=== PATIENT | female | born 1980 | race Caucasian/White ===

== ENCOUNTER → 2016-04-15 | Outpatient (CLI) | payer MEDICARE, MEDICAID | LOC: RAD 13:51 | PROVIDERS: ATTEND Neurological Surgery | DX: G37.9 Demyelinating disease of central nervous system, unspecified (principal) | CPT/HCPCS: 70553; A9577 ==

== ENCOUNTER → 2016-07-15 | Outpatient (CLI) | payer MEDICARE, MEDICAID | LOC: OD 10:25 | PROVIDERS: ATTEND Family Medicine | DX: R91.1 Solitary pulmonary nodule (principal) | CPT/HCPCS: 71020 ==

== ENCOUNTER 2016-09-15 19:16 | Emergency (ER) | payer MEDICARE, MEDICAID ==
--- NOTE | 2016-09-15 20:29 | ER Document Report ---
HPI - HPI Pain Level: 4 Context: Patient is a 36-year-old female that comes emergency department with chief complaint of pain in her left leg, patient states pain is been intermittent for a couple of days and is consistent with her left femoral head bursitis. She states that the pain starts towards the left outer part of her leg at the top and runs down towards her knee She denies injury, she denies fever or chills. - CARDIOVASCULAR Cardiovascular: DENIES: Chest pain - REPRODUCTIVE Reproductive: DENIES: : - DERM Skin Color: Normal Past Medical History - Social History Smoking Status: Current Every Day Smoker Chew tobacco use (# tins/day): No Frequency of alcohol use: Rare Drug Abuse: None Family History: Arthritis, CAD, CVA, DM, Hyperlipidemia, Hypertension, Malignancy, Thyroid Disfunction Patient has suicidal ideation: No Patient has homicidal ideation: No - Past Medical History Cardiac Medical History: Denies: Hx Coronary Artery Disease, Hx Heart Attack, Hx Hypertension Pulmonary Medical History: Reports: Hx Asthma, Hx Pneumonia - childhood Denies: Hx Bronchitis, Hx COPD Neurological Medical History: Reports: Hx Migraine. Denies: Hx Cerebrovascular Accident, Hx Seizures Endocrine Medical History: Denies: Hx Diabetes Mellitus Type 1, Hx Diabetes Mellitus Type 2 Renal/ Medical History: Denies: Hx Peritoneal Dialysis GI Medical History: Reports: Hx Gastroesophageal Reflux Disease, Hx Irritable Bowel Musculoskeltal Medical History: Denies Hx Arthritis, Reports Hx Fibromyalgia, Reports Hx Musculoskeletal Trauma Skin Medical History: Reports Hx MRSA Psychiatric Medical History: Reports: Hx Anxiety, Hx Bipolar Disorder, Hx Depression - anxiety, Hx Schizophrenia Traumatic Medical History: Reports: Hx Fractures Infectious Medical History: Reports: Hx MRSA Past Surgical History: Reports: Hx Adenoidectomy, Hx Myringotomy, Hx Orthopedic Surgery - Right knee surgery, Hx Tonsillectomy, Hx Tubal Ligation. Denies: Hx Hysterectomy, Hx Pacemaker - Immunizations Immunizations up to date: Yes Hx Diphtheria, Pertussis, Tetanus Vaccination: Yes - 2011 Hx Pneumococcal Vaccination: 02/27/09 Vertical Provider Document - CONSTITUTIONAL Agree With Documented VS: Yes Exam Limitations: No Limitations General Appearance: WD/WN, No Apparent Distress - INFECTION CONTROL TRAVEL OUTSIDE OF THE [place] IN LAST 30 DAYS: No - RESPIRATORY O2 Sat by Pulse Oximetry: 100 - CARDIOVASCULAR Pulses: Normal: Femoral, Dorsalis pedis - MUSCULOSKELETAL/EXTREMETIES Musculoskeletal/Extremeties: MAEW, FROM, Non-Tender, No Edema. negative: Eccymosis Notes: no deformity, normal gait, stuart to ambulate without difficulty - NEURO Level of Consciousness: Awake, Alert, Appropriate Motor/Sensory: No Motor Deficit, No Sensory Deficit - DERM Integumentary: Warm, Dry, No Rash. negative: Abscess Course - Re-evaluation Re-evalutation: 09/15/16 21:30 Patient is a 36-year-old female who is hemodynamic stable, no acute distress and afebrile. Patient presents with acute on chronic trochanteric bursitis of the left hip. Patient will be discharged home on steroids and to follow-up with her primary care. Low clinical suspicion for any underlying fracture given no acute trauma and presentation is consistent with previous evaluations for trochanteric bursitis. Patient to be discharged home, agreeable with plan. - Vital Signs Vital signs: Temp Pulse Resp BP Pulse Ox 98.1 F 79 14 125/79 100 09/15/16 19:23 09/15/16 19:23 09/15/16 19:23 09/15/16 19:23 09/15/16 19:23 Discharge - Discharge Clinical Impression: Trochanteric bursitis Qualifiers: Laterality: left Qualified Code(s): M70.62 - Trochanteric bursitis, left hip Condition: Good Disposition: HOME, SELF-CARE Instructions: Bursitis ([facility]) Additional Instructions: Please take your medications as prescribed and follow-up with your orthopedist, pain management and primary care physicians within 1 week. Prescriptions: Methylprednisolone [Medrol Dosepack (4 mg/Tab) 21 Tab/Dosepak] 4 mg PO ASDIR PRN #21 [id number] PRN Reason: Referrals: DAVIN RIVERA DO [Primary Care Provider] - Follow up as needed
[2016-09-15 20:53] VITALS: BP 125/95
== END 2016-09-15 20:53 | disposition home or self-care (01) ==
LOC: ER 19:16
DX: M70.62 Trochanteric bursitis, left hip (principal); F17.200 Nicotine dependence, unspecified, uncomplicated; Z86.14 Personal history of Methicillin resistant Staphylococcus aureus infection
CPT/HCPCS: 99283

== ENCOUNTER 2017-03-08 18:45 | Emergency (ER) | payer MEDICARE, MEDICAID ==
[2017-03-08 19:00] VITALS: BP 127/76
[2017-03-08] MEDS ORDERED: KETOROLAC TROMETHAMINE 60 MG/2 ML SDV IM ONE (20:51)
--- NOTE | 2017-03-08 20:56 | ER Document Report ---
ED Hip Pain/Injury - General Chief Complaint: Hip Pain Stated Complaint: RIGHT HIP PAIN Time Seen by Provider: 03/08/17 20:49 Notes: pt c/o right hip pain x 2 days. pt reports that she twisted on the couch and felt pain in right hip now hurts to move. pt presently taking percocet prn, muscle relaxant and celebrex for some undiagnosed autoimmune disease TRAVEL OUTSIDE OF THE [place] IN LAST 30 DAYS: No - HPI Patient complains to provider of: Pain Where: Home Onset/Duration: Gradual, Persistent Quality of pain: Sharp Rotation of extremity: None - Related Data Allergies/Adverse Reactions: naproxen [Naproxen] Allergy (Verified 03/08/17 18:54) GI upset quetiapine fumarate [From Seroquel] Allergy (Verified 03/08/17 18:54) throat swelling Past Medical History - General Information source: Patient - Social History Smoking Status: Current Every Day Smoker Chew tobacco use (# tins/day): No Frequency of alcohol use: Occasional Drug Abuse: None Lives with: Family Family History: Arthritis, CAD, CVA, DM, Hyperlipidemia, Hypertension, Malignancy, Thyroid Disfunction Patient has suicidal ideation: No Patient has homicidal ideation: No - Past Medical History Cardiac Medical History: Denies: Hx Coronary Artery Disease, Hx Heart Attack, Hx Hypertension Pulmonary Medical History: Reports: Hx Asthma, Hx Pneumonia - childhood Denies: Hx Bronchitis, Hx COPD Neurological Medical History: Reports: Hx Migraine. Denies: Hx Cerebrovascular Accident, Hx Seizures Endocrine Medical History: Denies: Hx Diabetes Mellitus Type 1, Hx Diabetes Mellitus Type 2 Renal/ Medical History: Denies: Hx Peritoneal Dialysis GI Medical History: Reports: Hx Gastroesophageal Reflux Disease, Hx Irritable Bowel Musculoskeltal Medical History: Denies Hx Arthritis, Reports Hx Fibromyalgia, Reports Hx Musculoskeletal Trauma Skin Medical History: Reports Hx MRSA Psychiatric Medical History: Reports: Hx Anxiety, Hx Bipolar Disorder, Hx Depression - anxiety, Hx Schizophrenia Traumatic Medical History: Reports: Hx Fractures Infectious Medical History: Reports: Hx MRSA Past Surgical History: Reports: Hx Adenoidectomy, Hx Myringotomy, Hx Orthopedic Surgery - Right knee surgery, Hx Tonsillectomy, Hx Tubal Ligation. Denies: Hx Hysterectomy, Hx Pacemaker - Immunizations Immunizations up to date: Yes Hx Diphtheria, Pertussis, Tetanus Vaccination: Yes - 2011 Hx Pneumococcal Vaccination: 02/27/09 Review of Systems - Review of Systems Constitutional: No symptoms reported EENT: No symptoms reported Cardiovascular: No symptoms reported Respiratory: No symptoms reported Gastrointestinal: No symptoms reported Genitourinary: No symptoms reported Female Genitourinary: No symptoms reported Musculoskeletal: No symptoms reported Skin: No symptoms reported Hematologic/Lymphatic: No symptoms reported Neurological/Psychological: No symptoms reported -: Yes All other systems reviewed and negative Physical Exam - Vital signs Vitals: Temp Pulse Resp BP Pulse Ox 98.6 F 66 16 127/76 H 99 03/08/17 18:57 03/08/17 18:57 03/08/17 18:57 03/08/17 18:57 03/08/17 18:57 Interpretation: Normal - General General appearance: Appears well, Alert - HEENT Head: Normocephalic, Atraumatic Eyes: Normal Pupils: PERRL - Respiratory Respiratory status: No respiratory distress Chest status: Nontender Breath sounds: Normal Chest palpation: Normal - Cardiovascular Rhythm: Regular Heart sounds: Normal auscultation Murmur: No - Abdominal Inspection: Normal Distension: No distension Bowel sounds: Normal Tenderness: Nontender Organomegaly: No organomegaly - Back Back: Normal, Nontender - Extremities General upper extremity: Normal inspection, Nontender, Normal color, Normal ROM , Normal temperature Hip: Tender - focal right anterior groin pain over sartorious muscle. no greater trochanter or iliac tenderness. distal SMC intact - Neurological Neuro grossly intact: Yes Cognition: Normal Orientation: AAOx4 [place] Coma Scale Eye Opening: Spontaneous [place] Coma Scale Verbal: Oriented [place] Coma Scale Motor: Obeys Commands [place] Coma Scale Total: 15 Speech: Normal Motor strength normal: LUE, RUE, LLE, RLE Sensory: Normal - Psychological Associated symptoms: Normal affect, Normal mood - Skin Skin Temperature: Warm Skin Moisture: Dry Skin Color: Normal Course - Vital Signs Vital signs: Temp Pulse Resp BP Pulse Ox 98.6 F 66 16 127/76 H 99 03/08/17 18:57 03/08/17 18:57 03/08/17 18:57 03/08/17 18:57 03/08/17 18:57 Discharge - Discharge Clinical Impression: Right groin pain Condition: Stable Disposition: HOME, SELF-CARE Instructions: Toradol Injection ([facility]) Additional Instructions: alternate ice/heat to area continue current medications follow up with primary care if pain persists
== END 2017-03-08 21:39 | disposition home or self-care (01) ==
LOC: ER 18:45
DX: R10.30 Lower abdominal pain, unspecified (principal); M25.551 Pain in right hip; J45.909 Unspecified asthma, uncomplicated; F17.200 Nicotine dependence, unspecified, uncomplicated; Z79.899 Other long term (current) drug therapy; Z88.8 Allergy status to other drugs, medicaments and biological substances
CPT/HCPCS: 99283; 96372; J1885

== ENCOUNTER 2017-04-09 16:51 | Emergency (ER) | payer MEDICARE, MEDICAID ==
--- NOTE | 2017-04-09 17:32 | ER Document Report ---
ED Medical Screen (RME) - General Chief Complaint: Abdominal Pain Stated Complaint: ABDOMINAL PAIN, NAUSEA Time Seen by Provider: 04/09/17 17:29 Mode of Arrival: Ambulatory Information source: Patient TRAVEL OUTSIDE OF THE [place] IN LAST 30 DAYS: No - HPI Patient complains to provider of: RLQ abd pain Onset: This afternoon - pt with onset of RLQ abdominal pain earlier this afternoon. Denies N/V - Related Data Allergies/Adverse Reactions: naproxen [Naproxen] Allergy (Verified 04/09/17 16:51) GI upset quetiapine fumarate [From Seroquel] Allergy (Verified 04/09/17 16:51) throat swelling Past Medical History - Social History Chew tobacco use (# tins/day): No Frequency of alcohol use: Rare Drug Abuse: None Family history: Arthritis, CAD, CVA, DM, Hyperlipidemia, Hypertension, Malignancy, Thyroid Disfunction - Past Medical History Cardiac Medical History: Denies: Hx Coronary Artery Disease, Hx Heart Attack, Hx Hypertension Pulmonary Medical History: Reports: Hx Asthma, Hx Pneumonia - childhood Denies: Hx Bronchitis, Hx COPD Neurological Medical History: Reports: Hx Migraine. Denies: Hx Cerebrovascular Accident, Hx Seizures Endocrine Medical History: Denies: Hx Diabetes Mellitus Type 1, Hx Diabetes Mellitus Type 2 Renal/ Medical History: Denies: Hx Peritoneal Dialysis GI Medical History: Reports: Hx Gastroesophageal Reflux Disease, Hx Irritable Bowel Musculoskeltal Medical History: Denies Hx Arthritis, Reports Hx Fibromyalgia, Reports Hx Musculoskeletal Trauma Skin Medical History: Reports Hx MRSA Psychiatric Medical History: Reports: Hx Anxiety, Hx Bipolar Disorder, Hx Depression - anxiety, Hx Schizophrenia Traumatic Medical History: Reports: Hx Fractures Infectious Medical History: Reports: Hx MRSA Past Surgical History: Reports: Hx Adenoidectomy, Hx Myringotomy, Hx Orthopedic Surgery - Right knee surgery, Hx Tonsillectomy, Hx Tubal Ligation. Denies: Hx Hysterectomy, Hx Pacemaker - Immunizations Immunizations up to date: Yes Hx Diphtheria, Pertussis, Tetanus Vaccination: Yes - 2011 Physical Exam - Vital signs Vitals: Temp Pulse Resp BP Pulse Ox 99.4 F 98 16 122/78 97 04/09/17 16:56 04/09/17 16:56 04/09/17 16:56 04/09/17 16:56 04/09/17 16:56 Course - Vital Signs Vital signs: Temp Pulse Resp BP Pulse Ox 99.4 F 98 16 122/78 97 04/09/17 16:56 04/09/17 16:56 04/09/17 16:56 04/09/17 16:56 04/09/17 16:56
[2017-04-09 18:35] LABS: ABSOLUTE BASOPHILS # (AUTO) 0.1 10^3/uL (0.0-0.2); ABSOLUTE EOSINOPHILS # (AUTO) 0.3 10^3/uL (0.0-0.6); ABSOLUTE LYMPHOCYTES (AUTO) 3.3 10^3/uL (0.5-4.7); ABSOLUTE MONOCYTES (AUTO) 0.5 10^3/uL (0.1-1.4); ABSOLUTE NEUT (AUTO) 3.9 10^3/uL (1.7-8.2); BASOPHILS % (AUTO) 0.9 % (0-2); EOSINOPHILS % (AUTO) 3.8 % (0-6); HEMATOCRIT 43.3 % (36.0-47.0); HEMOGLOBIN 15.4 g/dL (12.0-15.5); LYMPHOCYTES % (AUTO) 40.9 % (13-45); MEAN CORPUSCULAR HEMOGLOBIN 32.2 pg (27.0-33.4); MEAN CORPUSCULAR HGB CONC 35.5 g/dL (32.0-36.0); MEAN CORPUSCULAR VOLUME 91 fl (80-97); MONOCYTES % (AUTO) 6.7 % (3-13); PLATELET COUNT 237 10^3/uL (150-450); RED BLOOD COUNT 4.77 10^6/uL (3.72-5.28); RED CELL DISTRIBUTION WIDTH 12.3 % (11.5-14.0); SEGMENTED NEUTROPHILS % (AUTO) 47.7 % (42-78); TOTAL CELLS COUNTED % (AUTO) 100 %; WHITE BLOOD COUNT 8.1 10^3/uL (4.0-10.5)
[2017-04-09 18:40] LABS: APPEARANCE,URINE SLIGHTLY-CLOUDY; BILIRUBIN,URINE NEGATIVE (NEGATIVE); COLOR,URINE AMBER; GLUCOSE, URINE NEGATIVE (NEGATIVE); KETONES,URINE NEGATIVE (NEGATIVE); LEUKOCYTE ESTERASE,URINE NEGATIVE (NEGATIVE); NITRITE,URINE NEGATIVE (NEGATIVE); PROTEIN,URINE NEGATIVE (NEGATIVE)
[2017-04-09 18:58] LABS: ALANINE AMINOTRANSFERASE 28 U/L (9-52); ALBUMIN 4.4 g/dL (3.5-5.0); ALKALINE PHOSPHATASE 52 U/L (38-126); ANION GAP 7 (5-19); ASPARTATE AMINO TRANSFERASE 23 U/L (14-36); BILIRUBIN,DIRECT 0.3 mg/dL (0.0-0.4); BILIRUBIN,TOTAL 0.3 mg/dL (0.2-1.3); BLOOD UREA NITROGEN 12 mg/dL (7-20); CALCIUM 10.5 mg/dL (8.4-10.2); CARBON DIOXIDE 22 mmol/L (22-30); CHLORIDE 112 mmol/L (98-107); GLUCOSE 85 mg/dL (75-110); POTASSIUM 4.1 mmol/L (3.6-5.0); SODIUM 141.1 mmol/L (137-145); TOTAL PROTEIN 7.4 g/dL (6.3-8.2)
[2017-04-09] MEDS ORDERED: ONDANSETRON HCL INJ/PF 4 MG/2 ML SDV IV ONE (20:13)
--- NOTE | 2017-04-09 20:16 | ER Document Report ---
ED General - General Mode of Arrival: Ambulatory Information source: Patient TRAVEL OUTSIDE OF THE [place] IN LAST 30 DAYS: No <AUGUST MERCEDES - Last Filed: 04/09/17 21:05> <SHIRA MONCAAD - Last Filed: 04/09/17 22:24> - General Chief Complaint: Abdominal Pain Stated Complaint: ABDOMINAL PAIN, NAUSEA Time Seen by Provider: 04/09/17 17:29 Notes: Mrs. Dunham is a 36 y.o female who presents to the ED with RLQ abd pain and a general feeling of fatigue. Patient reports the onset of her abd pain today with the onset of nausea. She described her pain as a sharp intermittent pain that is exacerbated with touch. Patient also reports a "rust" colored rash to the palm of her hand that has since been relieved. She also admits to vaginal discharge but denies any known possiblies of STD. Patient reports a PSHx of tubal ligation. (AUGUST MERCEDES) - Related Data Allergies/Adverse Reactions: naproxen [Naproxen] Allergy (Verified 04/09/17 16:51) GI upset quetiapine fumarate [From Seroquel] Allergy (Verified 04/09/17 16:51) throat swelling Past Medical History - General Information source: Patient - Social History Smoking Status: Current Every Day Smoker - 1 pack/day Chew tobacco use (# tins/day): No Frequency of alcohol use: Rare Drug Abuse: None Family History: Arthritis, CAD, CVA, DM, Hyperlipidemia, Hypertension, Malignancy, Thyroid Disfunction Patient has suicidal ideation: No Patient has homicidal ideation: No Pulmonary Medical History: Reports: Hx Asthma, Hx Pneumonia - childhood Neurological Medical History: Reports: Hx Migraine Renal/ Medical History: Denies: Hx Peritoneal Dialysis GI Medical History: Reports: Hx Gastroesophageal Reflux Disease, Hx Irritable Bowel Musculoskeltal Medical History: Reports Hx Fibromyalgia, Reports Hx Musculoskeletal Trauma Skin Medical History: Reports Hx MRSA Psychiatric Medical History: Reports: Hx Anxiety, Hx Bipolar Disorder, Hx Depression - anxiety, Hx Schizophrenia Traumatic Medical History: Reports: Hx Fractures Infectious Medical History: Reports: Hx MRSA Past Surgical History: Reports: Hx Adenoidectomy, Hx Myringotomy, Hx Orthopedic Surgery - Right knee surgery, Hx Tonsillectomy, Hx Tubal Ligation. Denies: Hx Hysterectomy, Hx Pacemaker - Immunizations Immunizations up to date: Yes Hx Diphtheria, Pertussis, Tetanus Vaccination: Yes - 2011 Hx Pneumococcal Vaccination: 02/27/09 <AUGUST MERCEDES - Last Filed: 04/09/17 21:05> - Social History Smoking Education Provided: Yes - 4 mins <JAYLENMECHELLESHIRA - Last Filed: 04/09/17 22:24> Review of Systems - Review of Systems Constitutional: Other - "drained" EENT: No symptoms reported Cardiovascular: No symptoms reported Respiratory: No symptoms reported Gastrointestinal: Abdominal pain - RLQ pain Genitourinary: Discharge Female Genitourinary: No symptoms reported Musculoskeletal: No symptoms reported Skin: Rash - "rust colored" to the palm of hand Hematologic/Lymphatic: No symptoms reported Neurological/Psychological: No symptoms reported <AUGUST MERCEDES - Last Filed: 04/09/17 21:05> - Review of Systems Gastrointestinal: See HPI, Nausea <SHIRA MONCADA - Last Filed: 04/09/17 22:24> Physical Exam <AUGUST MERCEDES - Last Filed: 04/09/17 21:05> <SHIRA MONCADA - Last Filed: 04/09/17 22:24> - Vital signs Vitals: Temp Pulse Resp BP Pulse Ox 99.4 F 98 16 122/78 97 04/09/17 16:56 04/09/17 16:56 04/09/17 16:56 04/09/17 16:56 04/09/17 16:56 - Notes Notes: GENERAL: Alert, interacts well. No acute distress. HEAD: Normocephalic, atraumatic. EYES: Pupils equal, round, and reactive to light. Extraocular movements intact. ENT: Oral mucosa moist, tongue midline. NECK: Full range of motion. Supple. Trachea midline. LUNGS: Clear to auscultation bilaterally, no wheezes, rales, or rhonchi. No respiratory distress. HEART: Regular rate and rhythm. No murmurs, gallops, or rubs. ABDOMEN: Abdomen soft. Non-distended. Bowel sounds present in all 4 quadrants. RLQ tender to palpation, winces to physical exam. No guarding, rebound, or rigidity. EXTREMITIES: Moves all 4 extremities spontaneously. No edema, radial and dorsalis pedis pulses 2/4 bilaterally. No cyanosis. NEUROLOGICAL: Alert and oriented x3. Normal speech. PSYCH: Normal affect, normal mood. SKIN: Warm, dry, normal turgor. No rashes or lesions noted. (AUGUST MERCEDES) Course - Laboratory Result Diagrams: 04/09/17 18:14 04/09/17 18:14 <AUGUST MERCEDES - Last Filed: 04/09/17 21:05> - Laboratory Result Diagrams: 04/09/17 18:14 04/09/17 18:14 <SHIRA MONCADA - Last Filed: 04/09/17 22:24> - Re-evaluation Re-evalutation: 04/09/17 21:11 CBC unremarkable, CMP grossly unremarkable, test negative, urinalysis unremarkable, CT scan of the abdomen pelvis reveals small amount of free fluid, normal appendix, pedunculated fibroid. Suspect that she likely had a ruptured ovarian cyst causing her pain, patient agrees, states she has had one of these in the past and feels very similar but was on the left-hand side so when she developed the pain on the right-hand side she worried about her appendix rather than a ruptured cyst. Patient already has narcotic pain medication at home, will be given Zofran to take home and discharged home. She will return for worsening pain, persistent pain or fevers. 04/09/17 21:11 (SHRIA MONCADA) - Vital Signs Vital signs: Temp Pulse Resp BP Pulse Ox 99.4 F 89 18 119/68 98 04/09/17 16:56 04/09/17 21:24 04/09/17 21:24 04/09/17 21:24 04/09/17 21:24 - Laboratory Laboratory results interpreted by me: 04/09/17 04/09/17 18:14 18:14 Chloride 112 H Calcium 10.5 H Urine Urobilinogen 2.0 H Urine Ascorbic Acid 40 H Discharge <AUGUST MERCEDES - Last Filed: 04/09/17 21:05> <SHIRA MONCADA - Last Filed: 04/09/17 22:24> - Discharge Clinical Impression: Tobacco abuse, Tobacco abuse counseling, RLQ abdominal pain Uterine fibroid Qualifiers: Uterine leiomyoma location: unspecified location Qualified Code(s): D25.9 - Leiomyoma of uterus, unspecified Condition: Stable Disposition: HOME, SELF-CARE Additional Instructions: I suspect her pain is coming from a ruptured ovarian cyst. Today your appendix is normal. You have a fibroid in your uterus. If your pain worsens, if you develop a fever or if you develop any concerning symptoms please return to the emergency department. Please mention your uterine fibroid to your MEDICAL STAFF ASSISTANT the next time you see them. Forms: Smoking Cessation Education Referrals: DAVIN RIVERA DO [Primary Care Provider] - Follow up as needed Scribe Attestation: 04/09/17 22:24 I personally performed the services described in the documentation, reviewed and edited the documentation which was dictated to the scribe in my presence, and it accurately records my words and actions. (SHIRA MONCADA)
--- NOTE | 2017-04-09 20:18 | RADIOLOGY REPORT (SQ) ---
EXAM DESCRIPTION: CT ABD/PELVIS WITH IV ONLY COMPLETED DATE/TIME: 04/09/2017 8:08 pm REASON FOR STUDY: abd pain: RLQ COMPARISON: None. TECHNIQUE: CT scan of the abdomen and pelvis performed using helical scanning technique with dynamic intravenous contrast injection. No oral contrast. Images reviewed with lung, soft tissue, and bone windows. Reconstructed coronal and sagittal MPR images reviewed. Delayed images for evaluation of the urinary system also acquired. All images stored on PACS. All CT scanners at this facility use dose modulation, iterative reconstruction, and/or weight based d osing when appropriate to reduce radiation dose to as low as reasonably achievable (ALARA). [facility]: Dose Right [facility]: CareDose [facility]: Dose Right [facility]: Teradose 4D [facility]: [employer]cycles CONTRAST TYPE AND DOSE: contrast/concentration: Isovue 370.00 mg/ml; Total Contrast Delivered: 83.0 ml; Total Saline Delivered: 68.0 ml RENAL FUNCTION: None required. The patient is less than 50 years old. RADIATION DOSE: . LIMITATIONS: None. FINDINGS: LOWER CHEST: No significant findings. No nodules or infiltrates. LIVER: Small hepatic cysts. No significant masses. No dilated ducts. SPLEEN: Normal size. No focal lesions. PANCREAS: No masses. No significant calcifications. No adjacent inflammation or peripancreatic fluid collections. Pancreatic duct not dilated. GALLBLADDER: No identified stones by CT criteria. No inflammatory changes to suggest cholecystitis. ADRENAL GLANDS: No significant masses or asymmetry. RIGHT KIDNEY AND URETER: No solid masses. No significant calcifications. No hydronephrosis or hyd roureter. LEFT KIDNEY AND URETER: No solid masses. No significant calcifications. No hydronephrosis or hydr oureter. AORTA AND VESSELS: No aneurysm. No dissection. Renal arteries, SMA, celiac without stenosis. RETROPERITONEUM: No retroperitoneal adenopathy, hemorrhage or masses. BOWEL AND PERITONEAL CAVITY: No masses or inflammatory changes. No free fluid or peritoneal masses. APPENDIX: Normal. PELVIS: 3.4 cm left-sided pedunculated uterine fibroid. Small amount of free fluid in the pelvis. N ormal bladder. . ABDOMINAL WALL: No hernia BONES: No significant or acute findings. OTHER: No other significant finding. IMPRESSION: 3.4 cm left sided pedunculated uterine fibroid. Small amount of free fluid in the pelvis. Appendix normal. TECHNICAL DOCUMENTATION: JOB ID: [id number] Quality ID # [id number]: Final reports with documentation of one or more dose reduction techniques (e.g., Au tomated exposure control, adjustment of the mA and/or kV according to patient size, use of iterative reconstruction technique) 2010 [employer]- All Rights Reserved
[2017-04-09] MEDS ORDERED: ONDANSETRON ODT 4 MG TAB (6 TAB/ER DISP) PO PRN (21:08)
[2017-04-09 21:25] VITALS: BP 119/68
== END 2017-04-09 21:24 | disposition home or self-care (01) ==
LOC: ER 16:51
DX: D25.9 Leiomyoma of uterus, unspecified (principal); R10.31 Right lower quadrant pain; N89.8 Other specified noninflammatory disorders of vagina; R53.83 Other fatigue; R11.0 Nausea; J45.909 Unspecified asthma, uncomplicated; F17.200 Nicotine dependence, unspecified, uncomplicated; Z71.6 Tobacco abuse counseling; Z98.51 Tubal ligation status; Z88.8 Allergy status to other drugs, medicaments and biological substances
CPT/HCPCS: 99284; 96374; 36415; 83690; 85025; 81025; 80053; 81001; 74177; J2405; A9270

== ENCOUNTER 2017-10-23 09:26 | Emergency (ER) | payer MEDICARE, MEDICAID ==
--- NOTE | 2017-10-23 09:40 | ER Document Report ---
HPI - HPI Patient complains to provider of: Right hip pain Onset: Other - 2 weeks Pain Level: 4 Context: 37-year-old female complaining of right hip pain for 2 weeks. No specific injury. She has been seen for hip pain in the past. No back pain. Hurts worse with movement. There is no radiculopathy or saddle anesthesia. No fever or chills. No IV drug use. Associated Symptoms: None Exacerbated by: Movement, Walking Relieved by: Denies - ROS ROS below otherwise negative: Yes Systems Reviewed and Negative: Yes All other systems reviewed and negative - REPRODUCTIVE Reproductive: DENIES: : Past Medical History - General Information source: Patient - Social History Smoking Status: Unknown if Ever Smoked Family History: Arthritis, CAD, CVA, DM, Hyperlipidemia, Hypertension, Malignancy, Thyroid Disfunction Pulmonary Medical History: Reports: Hx Asthma, Hx Pneumonia - childhood Neurological Medical History: Reports: Hx Migraine GI Medical History: Reports: Hx Gastroesophageal Reflux Disease, Hx Irritable Bowel Musculoskeletal Medical History: Reports Hx Fibromyalgia, Reports Hx Musculoskeletal Trauma Skin Medical History: Reports Hx MRSA Psychiatric Medical History: Reports: Hx Anxiety, Hx Bipolar Disorder, Hx Depression - anxiety, Hx Schizophrenia Traumatic Medical History: Reports: Hx Fractures Infectious Medical History: Reports: Hx MRSA Past Surgical History: Reports: Hx Adenoidectomy, Hx Myringotomy, Hx Orthopedic Surgery - Right knee surgery, Hx Tonsillectomy, Hx Tubal Ligation - Immunizations Immunizations up to date: Yes Hx Diphtheria, Pertussis, Tetanus Vaccination: Yes - 2011 Hx Pneumococcal Vaccination: 02/27/09 Vertical Provider Document - CONSTITUTIONAL Agree With Documented VS: Yes Exam Limitations: No Limitations General Appearance: Obese - INFECTION CONTROL TRAVEL OUTSIDE OF THE [place] IN LAST 30 DAYS: No - GI/ABDOMEN Gastrointestinal: Abdomen Soft, Abdomen Non-Tender, No Organomegaly - BACK Back: Normal Inspection - MUSCULOSKELETAL/EXTREMETIES Musculoskeletal/Extremeties: MAEW, FROM, Tender - mild over the soft tissue above the greater trochantur. negative: Edema, Eccymosis - NEURO Level of Consciousness: Awake, Alert - DERM Integumentary: No Rash Course - Re-evaluation Re-evalutation: 10/23/17 11:20 Hip x-rays negative per radiologist The patient has a connective tissue disorder which is probably including this pain. She is a pain management and I will reassure her that the x-ray is normal and she can follow-up with her pain management. Discharge - Discharge Clinical Impression: Right hip pain Condition: Good Disposition: HOME, SELF-CARE Instructions: Muscle Strain ([facility]) Additional Instructions: See your doctor for follow-up Tylenol up to 4000 mg a day for pain Continue the Celebrex for inflammation Copy of negative imaging report given to you Return to the emergency room for any worsening of the symptoms or any concerns Referrals: DAVIN RIVERA DO [Primary Care Provider] - Follow up tomorrow
--- NOTE | 2017-10-23 11:15 | RADIOLOGY REPORT (SQ) ---
EXAM DESCRIPTION: HIP RIGHT AP/LATERAL COMPLETED DATE/TIME: 10/23/2017 10:52 am REASON FOR STUDY: pain COMPARISON: None. NUMBER OF VIEWS: Two views. TECHNIQUE: AP pelvis and additional frog-leg view of the right hip. LIMITATIONS: None. FINDINGS: MINERALIZATION: Normal. RIGHT HIP: No fracture or dislocation. No worrisome bone lesions. No contour deformity. No joint sp cj narrowing. LEFT HIP: No fracture or dislocation. No worrisome bone lesions. PUBIS AND ISCHIUM: No fracture. PELVIS: No fracture. SACRUM: No fracture or dislocation. No worrisome bone lesions. LOWER LUMBAR SPINE: No fracture or dislocation. No worrisome bone lesions. No significant disc disea se. SOFT TISSUES: No findings. OTHER: No other significant finding. IMPRESSION: No acute findings. TECHNICAL DOCUMENTATION: JOB ID: [id number] [employer]- All Rights Reserved Reading location - IP/workstation name: [facility]
[2017-10-23 11:24] VITALS: BP 117/71
== END 2017-10-23 11:35 | disposition home or self-care (01) ==
LOC: ER 09:26
DX: M25.551 Pain in right hip (principal); Z86.14 Personal history of Methicillin resistant Staphylococcus aureus infection
CPT/HCPCS: 99283

== ENCOUNTER → 2019-01-26 | Outpatient (CLI) | payer MEDICARE, MEDICAID ==
[2019-01-26 16:07] LABS: APPEARANCE,URINE SLIGHTLY-CLOUDY; BILIRUBIN,URINE NEGATIVE (NEGATIVE); CALCIUM OXALATE CRYSTALS,URINE MANY /HPF; GLUCOSE, URINE NEGATIVE (NEGATIVE); KETONES,URINE NEGATIVE (NEGATIVE); LEUKOCYTE ESTERASE,URINE SMALL (NEGATIVE); NITRITE,URINE NEGATIVE (NEGATIVE); PROTEIN,URINE 30 mg/dL (NEGATIVE); URINE SPECIFIC GRAVITY 1.028; UROBILINOGEN,URINE NEGATIVE mg/dL (<2.0)
[2019-01-26 16:08] LABS: COLOR,URINE YELLOW
== END ==
LOC: LAB 15:46
PROVIDERS: ATTEND Nurse Practitioner Family
DX: R10.9 Unspecified abdominal pain (principal)
CPT/HCPCS: 81001; 87086; 87088